=== PATIENT | female | born 1965 | race Caucasian/White ===

== ENCOUNTER 2022-01-12 21:31 | Emergency (ER) | payer BC ==
[~2022-01-12] VITALS: Ht 162.6 cm; Wt 51.3 kg
--- NOTE | 2022-01-12 21:50 | NUR ---
pt in room 5a states has urinary issues, was at urgent care.
--- NOTE | 2022-01-12 21:57 | NUR ---
Dr. Marvin at bedside for MSE.
[2022-01-12 22:29] LABS: HEMATOCRIT 37.9 % (31.2-41.9); MEAN CORPUSCULAR HEMOGLOBIN 30.4 uug (24.7-32.8); MEAN CORPUSCULAR VOLUME 87.5 fL (75.5-95.3); PLATELET COUNT (AUTO) 218 K/uL (179-408)
[2022-01-12 22:35] LABS: *BILIRUBIN,URIN NEGATIVE (NEGATIVE); *BLOOD, URINE NEGATIVE (NEGATIVE); *CLARITY,URINE CLEAR (CLEAR); *KETONES,URINE NEGATIVE (NEGATIVE); *UROBILINOGEN,URINE 0.2 E.U./dl (NORMAL); LEUKOCYTE ESTERASE ,URINE NEGATIVE (NEGATIVE); NITRITE, URINE NEGATIVE (NEGATIVE); PH,URINE 5.5 (5.0-8.0); UGLUCOSE NEGATIVE (NEGATIVE)
[2022-01-12 22:44] LABS: *COLOR,URINE STRAW (YELLOW)
[2022-01-12 22:50] LABS: CREATININE 0.7 mg/dL (0.6-1.3); POTASSIUM 3.7 mmol/L (3.5-5.1)
[2022-01-12 22:54] LABS: MAGNESIUM 2.2 mg/dL (1.8-2.4)
--- NOTE | 2022-01-12 22:54 | NUR ---
updated pt that some lab results have come back and that Dr. Marvin has ordered an Ultrasound.
--- NOTE | 2022-01-12 23:14 | NUR ---
pt is currently have an ultrasound done.
[2022-01-12] MEDS ORDERED: PHEN-704 PO (23:49)
[2022-01-12] MEDS ORDERED: PHENAZOPYRIDINE HCL 100 MG TABLET ONE (23:52)
[2022-01-13] MEDS ORDERED: PHENAZOPYRIDINE HCL 100 MG TABLET PO ONE
--- NOTE | 2022-01-13 00:11 | NUR ---
Patient discharged to home in stable condition. Written and verbal after care instructions given. Patient verbalizes understanding of instructions. Stressed follow up or return to ER for worsening s/s.
[2022-01-13 00:12] VITALS: BP 130/80
== END 2022-01-13 00:23 | disposition home or self-care (01) ==
LOC: ER 21:37
DX: R10.2 Pelvic and perineal pain (principal); R03.0 Elevated blood-pressure reading, without diagnosis of hypertension; Z88.2 Allergy status to sulfonamides
CPT/HCPCS: 36415; 76856; 83735; 85025; A4663